=== PATIENT | male | born 1975 | race Caucasian/White ===

== ENCOUNTER 2020-11-17 10:20 | Emergency (ER) | payer OTHER ==
[2020-11-17] MEDS ORDERED: Diphtheria,Pertussis(Acell),Tetanus Vaccine 0.5 ML Syringe IM ONE (13:45)
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
== END 2020-11-17 14:06 | disposition home or self-care (01) ==
LOC: JP.ED 10:20
DX: T33.821A Superficial frostbite of right foot, initial encounter (principal); F32.9 Major depressive disorder, single episode, unspecified; Z79.899 Other long term (current) drug therapy; X31.XXXA Exposure to excessive natural cold, initial encounter
CPT/HCPCS: 90471; 90715; 99283